=== PATIENT | female | born 1985 | race Caucasian/White ===

== ENCOUNTER 2020-04-30 19:52 | Emergency (ER) | payer BC, SELFPAY ==
[2020-04-30 20:10] VITALS: BP 127/80; PULSE 73; RESP 20; TEMP 36.6; O2SAT 96; BMI 31.1
[2020-04-30 20:45] LABS: UTC Strep Screen (Rapid) Positive (Negative)
--- NOTE | 2020-04-30 20:46 | HMH.EDUTC ---
[facility] [place] Clinical Impression: Exposure to COVID-19 virus, Strep throat Disposition: Home, Self-Care Condition on Discharge: Good Instructions: Strep Throat, DI for Strep Throat, DI for COVID-19 (Suspected or Confirmed ), Coronavirus Disease 2019, COVID-19: Testing and Tracing, Preventing the Spread of Coronavirus Discharge Instructions Additional Instructions: *Monitor Temp, Over the counter Motrin or Tylenol as directed/as needed Tylenol every 4 hours and Motrin every 6 hours (as long as your family doctor has told you that you can take it) for fever or pain. and straight to ER if unable to lower temp less than 101.0 after medication given *Warm salt water gargles may help to soothe the throat *Throat Lozenges *Warm fluids like tea with honey may help to soothe the throat *Sleep elevated *Humidifier/Vaporizer *If you did not take Penicillin shot or was unable to, start taking antibiotic immediately and make sure that you take it for the FULL length of time although you should start to feel better in 24-48 hours *change toothbrush and toothpaste 24-48 hours after starting to take antibiotics so you do not reinfect yourself Monitor Temp. Tylenol and/or Ibuprofen as needed. ER if fever is no less than 101 despite alternating Tylenol and Ibuprofen * Encourage fluids, water, Gatorade, powerade, pedialyte if /toddler/or child *Cold fluids, popsicles and ice cream may feel good on his throat Follow up IMMEDIATELY for new or worsening symptoms or no Noticeable improvement over the next 48-72 hours. 911 for difficulty breathing or swallowing You were tested for today for COVID19 your test result should be back in the next 24-48 hours, you may call to the [facility] to see if your test results are back in the next 48 hours [phone] [facility] hours are 9am-9pm You was given a handout with instructions for Self Quarantine and Self isolation for while you wait on test results and what to do if they are positive If you are positive the Health Dept will be contacting you also Prescriptions: Amoxicillin [Amoxicillin 500mg Cap] 500 mg PO BID 10 Days #20 cap Transmission Status: Received by [facility]/pharmacy #[id number] Ondansetron [Zofran 4mg ODT] 4 mg PO TIDP PRN #6 tab PRN Reason: Nausea Transmission Status: Pending to [facility]/pharmacy #[id number] Referrals: Theresa oTth PA [Primary Care Provider] - As needed Time of Disposition: 20:52 Medical Decision Making - Abdoul Inquiry Pt receiving controlled substance: No Abdoul was queried for this patient: No Vital Signs: 04/30/20 20:10 Temperature 97.8 F Temperature Source Oral Pulse Rate [Left Brachial] 73 Respiratory Rate 20 Blood Pressure [Left Arm] 127/80 Blood Pressure Mean [Left Arm] 95 Blood Pressure Source [Left Arm] Automatic Cuff Blood Pressure Position [Left Arm] Sitting 02 Sat by Pulse Oximetry 96 Oxygen Delivery Method Room Air - Lab Data Lab results reviewed: Yes: I reviewed the patient's lab results. Lab Results 04/30/20 20:43: Strep Scn Rapid [facility] Positive A Orders (Tests/Meds): ORDERS Category Date Time Status Covid-19 Nasal PCR ([facility]) Routine Lab 04/30/20 20:11 Re[place] [facility] [place] - General Stated complaint: covid test Time Seen by Provider: 04/30/20 20:47 Mode of Arrival: Ambulatory Source of Information: Patient Limitations: No Limitations Description of Symptoms (Recalled from Triage Doc. by RN): REQUESTING COVID TEST D/T EXPOSURE; C/O SORE THROAT, NAUSEA, AND FATIGUE HEENT Symptoms (Recalled from RN notes): Yes Resp Symptoms (Recalled from RN notes): No Skin Symptoms (Recalled from RN notes): No MS Symptoms (Recalled from RN notes): No Functional Status (Recalled from RN notes): WNL - History of Present Illness Provider Complaint: Patient states that she was recently around someone that tested positive for COVID States that she has been having sore throat, cough, body aches upset stomach and headache States that today she was feeli
[2020-04-30 20:54] VITALS: BP 127/80; PULSE 73; RESP 20; TEMP 36.6; O2SAT 96
== END 2020-04-30 21:00 | disposition home or self-care (01) ==
PROVIDERS: Emergency Provider Nurse Practitioner; PCP Nurse Practitioner Family
DX: J02.0 Streptococcal pharyngitis (principal); Z20.828 Contact with and (suspected) exposure to other viral communicable diseases; F17.210 Nicotine dependence, cigarettes, uncomplicated
CPT/HCPCS: 87880; 99202; G0463; U0003

== ENCOUNTER 2020-12-13 19:49 | Emergency (ER) | payer BC, SELFPAY ==
[2020-12-13 20:07] VITALS: BP 105/80; PULSE 88; RESP 18; TEMP 37.6; O2SAT 99; BMI 30.1
--- NOTE | 2020-12-13 20:21 | HMH.EDUTC ---
[facility] [place] Clinical Impression: Viral syndrome, Exposure to COVID-19 virus Disposition: Home, Self-Care Condition on Discharge: Good Instructions: DI for Viral Syndrome, Preventing the Spread of Coronavirus Discharge Instructions Additional Instructions: Drink plenty of fluids. Take tylenol for pain or fever. Return if you begin to have difficulty breathing. Follow up with your regular doctor. GO TO THE ER FOR ANY WORSENING SYMPTOMS Quarantine until you know the results of your covid-19 test. If it is positive, the health department should call you and give you further instructions about your length of Quarantine and other thing. Prescriptions: Ondansetron [Zofran 4mg ODT] 4 mg PO Q8HP PRN #12 tab.rapdis PRN Reason: Nausea Transmission Status: Received by [facility]/pharmacy #[id number] Referrals: Theresa Toth PA [Primary Care Provider] - Time of Disposition: 20:33 Medical Decision Making - Medical Records Medical records reviewed: No: I reviewed the patient's medical records. - Abdoul Inquiry Pt receiving controlled substance: No Vital Signs: 12/13/20 20:07 12/13/20 20:36 Temperature 99.6 F 99.5 F Temperature Source Oral Pulse Rate 85 Pulse Rate [Left] 88 Respiratory Rate 18 18 Blood Pressure 109/82 L Blood Pressure [Right Arm] 105/80 L Blood Pressure Mean [Right Arm] 88 02 Sat by Pulse Oximetry 99 Orders (Tests/Meds): ORDERS Category Date Time Status Covid-19 Nasal PCR ([facility]) Routine Lab 12/13/20 20:02 Received [facility] [place] - General Stated complaint: covid test Time Seen by Provider: 12/13/20 20:22 Mode of Arrival: Ambulatory Source of Information: Patient Limitations: No Limitations Description of Symptoms (Recalled from Triage Doc. by RN): PT C/O FEVER, crowder, BODY ACHES, CHILLS AND LOSS OF TASTE. PTS SON AND FIANCE ARE BOTH COVID POSITIVE. HEENT Symptoms (Recalled from RN notes): Yes (CROWDER AND LOSS OF TASTE) Resp Symptoms (Recalled from RN notes): No Skin Symptoms (Recalled from RN notes): No MS Symptoms (Recalled from RN notes): No Functional Status (Recalled from RN notes): BODY ACHES, CHILLS AND FEBRILE - History of Present Illness Provider Complaint: She c/o feeling bad for the past 3 days. She has had a cough, chest congestion, body aches. Both her son and her fiance have covid at this time. - Related Data Home Medications Medication Instructions Recorded Confirmed vilazodone 20 mg tablet mg PO DAILY tab 06/10/19 06/18/19 Previous Rx's Medication Instructions Recorded Hydrocodone/Acetaminophen [[place] 1 each PO Q6HP PRN #12 tab 06/09/19 5-325 Tablet] Naproxen [Naproxen 500mg tab] 500 mg PO Q12 PRN 7 Days #14 tab 06/09/19 hydrocodone 5 mg-acetaminophen 325 1 tab PO Q6H PRN #20 tab 06/10/19 mg tablet Amoxicillin [Amoxicillin 500mg 500 mg PO BID 10 Days #20 cap 04/30/20 Cap] Ondansetron [Zofran 4mg ODT] 4 mg PO TIDP PRN #6 tab 04/30/20 Ondansetron [Zofran 4mg ODT] 4 mg PO Q8HP PRN #12 tab.rapdis 12/13/20 Allergies Allergy/AdvReac Type Severity Reaction Status Date / Time No Known Drug Allergies Allergy Unknown Verified 06/18/19 13:50 [NO KNOWN DRUG ALLERGIES] - Worker's Comp Is this a Worker's Comp case?: No [facility] History - Hepatitis A Screen Drug use history?: No High risk sexual behaviors?: No History of sexually transmitted infection?: No Currently employed?: No Childcare worker?: No Do you have indoor plumbing?: Yes Do you have electricity?: Yes Attestation statement:: This patient has been screened for Hepatitis A risk factors. I have reviewed the patient's past medical history: Yes Other Surgeries: Yes: Amputation: No Fractures: No - Social History Smoking Status: Current some day smoker Alcohol Intake: never Substance Use Type: denies use Occupational Status: other Housing: house Household Members: family Family Hx:: No significant family history ROS Obtained: Yes All
[2020-12-13 20:36] VITALS: BP 109/82; PULSE 85; RESP 18; TEMP 37.5
--- NOTE | 2020-12-14 11:21 | PC.NURSE ---
PATIENT NOTIFIED OF POSITIVE COVID TEST AT THIS TIME
== END 2020-12-13 20:39 | disposition home or self-care (01) ==
PROVIDERS: Emergency Provider Nurse Practitioner Family; PCP Nurse Practitioner Family
DX: U07.1 COVID-19 (principal); B34.8 Other viral infections of unspecified site
CPT/HCPCS: 99202; G0463; U0003

== ENCOUNTER 2021-04-20 19:35 | Emergency (ER) | payer BC, SELFPAY ==
[2021-04-20 19:45] VITALS: BP 100/79; PULSE 110; RESP 16; TEMP 37.7; O2SAT 98; BMI 30.6
--- NOTE | 2021-04-20 20:32 | HMH.EDGENADL ---
ED Disposition Clinical Impression: Lumbar radicular pain Disposition: Home, Self-Care Condition on Discharge: Good Instructions: DI for Lumbar Radiculopathy Additional Instructions: use meds and see pcp for follow up Prescriptions: predniSONE [Prednisone 20mg Tab] 20 mg PO BID #10 tab Transmission Status: Pending to [facility]/pharmacy #[id number] Referrals: Emory Uriarte APRN [Primary Care Provider] - - Critical Care Critical Care Time: No Attestation: On 04/20/21, the high probability of a clinically significant, sudden or life threatening deterioration of the following system(s) required my full and direct attention, intervention and personal management. The time I documented below is in addition to time spent performing reported procedures but includes the following listed in this critical care notation. Medical Decision Making - Medical Records Medical records reviewed: Yes: I reviewed the patient's medical records. - Abdoul Inquiry Pt receiving controlled substance: No Vital Signs: 04/20/21 19:45 Temperature 100 F H Temperature Source Oral Pulse Rate [Right Brachial] 110 H Respiratory Rate 16 Blood Pressure [Right Arm] 100/79 L Blood Pressure Mean [Right Arm] 86 Blood Pressure Source [Right Arm] Automatic Cuff Blood Pressure Position [Right Arm] Sitting 02 Sat by Pulse Oximetry 98 Oxygen Delivery Method Room Air - Lab Data Lab results reviewed: Yes: I reviewed the patient's lab results. Lab Results 04/20/21 21:04: Urine Color Brown, Urine Appearance Cloudy, Urine pH 5.5, Ur Specific [place] >= 1.030, Urine Protein 1+, Urine Glucose (UA) Negative, Urine Ketones 1+, Urine Blood 3+, Urine Nitrate Negative, Urine Bilirubin 2+ A, Urine Urobilinogen 0.2, Ur Leukocyte Esterase Negative Orders (Tests/Meds): ORDERS Category Date Time Status C-Reactive Protein Stat Lab 04/20/21 20:11 Ordered Complete Blood Count Auto Diff Stat Lab 04/20/21 20:11 Ordered Comprehensive Metabolic Panel Stat Lab 04/20/21 20:11 Ordered Erythrocyte Sedimentation Rate Stat Lab 04/20/21 20:11 Ordered HCG Qualitative, Serum Stat Lab 04/20/21 20:17 Ordered Lactic Acid Stat Lab 04/20/21 20:11 Ordered Procalcitonin Stat Lab 04/20/21 20:11 Ordered Rapid PCR Covid and Flu A/B Stat Lab 04/20/21 20:11 Ordered Urinalysis and Microscopic Stat Lab 04/20/21 21:04 Results - Radiology Data #1 Image(s): L-Spine Image Reviewed: Yes I have reviewed radiologist's interpretation Preliminary Findings: No Fracture Seen Medical Decision Narrative: pt has lumbar radicular pain without cauda equina - urine - pt on menses - will treat as inflamation General Adult HPI - General Chief complaint: PAIN Stated complaint: lower back pain, surgery 06/21 Time Seen by Provider: 04/20/21 20:00 Mode of Arrival: Ambulatory Source of Information: Patient, Medical Record Limitations: No Limitations Description of Symptoms (Recalled from ER Triage Doc. by RN): c/o pain to lower back, and radiating to legs. Reports previous two back surgery. States lifted a bale of hay yesterday - History of Present Illness HPI narrative: hx of prev surg to back - has lifting and now increased pain and rad to rt lower leg - no cauda equina sx - no fever or rash Onset (ago): day(s) Location: back Radiation: extremity Severity: moderate Quality: sharp Consistency: intermittent Associated symptoms: denies other symptoms Treatments prior to arrival: none - Related Data Home Medications Medication Instructions Recorded Confirmed vilazodone 20 mg tablet mg PO DAILY tab 06/10/19 06/18/19 Previous Rx's Medication Instructions Recorded Hydrocodone/Acetaminophen [[place] 1 each PO Q6HP PRN #12 tab 06/09/19 5-325 Tablet] Naproxen [Naproxen 500mg tab] 500 mg PO Q12 PRN 7 Days #14 tab 06/09/19 hydrocodone 5 mg-acetaminophen 325 1 tab PO Q6H PRN #20 tab 06/10/19 mg tablet Amoxicillin [Amoxicillin 500mg 500 mg PO BID 10 D
--- NOTE | 2021-04-20 20:33 | XR_ITS ---
PROCEDURE INFORMATION: Exam: XR Lumbosacral Spine Exam date and time: 04/20/2021 8:33 PM Age: 35 years old Clinical indication: Low back pain; Prior surgery; Surgery date: 6+ months; Surgery type: Lumbar fusion several months ago at . TECHNIQUE: Imaging protocol: XR of the lumbosacral spine. Views: 4 or 5 views. COMPARISON: CT ABDOMEN PELVIS W CON 06/08/2019 9:29 PM FINDINGS: Bones/joints: Lumbosacral fusion hardware is present. Surgical hardware appears intact without significant adjacent lucency. Physiologic alignment. No acute fracture. Soft tissues: Unremarkable. IMPRESSION: Postsurgical changes described above.
--- NOTE | 2021-04-20 20:34 | PC.NURSE ---
PATIENT REFUSES IV AND BLOOD DRAW AT THIS TIME. AWARE.
[2021-04-20 21:22] LABS: Microscopic, Urine URINE MICROSCOPIC (MICROSCOPIC)
[2021-04-20 21:36] LABS: Appearance,Urine CLOUDY (Clear); Blood, Urine 3+ (Negative); Color,Urine BROWN (Yellow); Glucose,Urine (UA) Negative (Negative); Ketones,Urine 1+ (Negative); Leukocyte Esterase,Urine Negative (Negative); Nitrate,Urine Negative (Negative); PH,Urine 5.5 (5.0-8.5); Protein,Urine 1+ (Negative); Specific Gravity, Urine >= 1.030 (1.005-1.030); Urobilinogen,Urine 0.2 EU/dl (0.2)
[2021-04-20 21:41] LABS: Bilirubin,Urine 2+ (Negative)
[2021-04-20 22:21] VITALS: BP 114/75; PULSE 78; RESP 16; TEMP 36.6; O2SAT 98
[2021-04-20 22:39] LABS: Bacteria,Urine 1+ /lpf; RBC,Urine TNTC #/hpf (0-3)
== END 2021-04-20 22:22 | disposition home or self-care (01) ==
PROVIDERS: Emergency Provider Emergency Medicine; PCP Nurse Practitioner Family
DX: M54.16 Radiculopathy, lumbar region (principal); X50.0XXA Overexertion from strenuous movement or load, initial encounter; F17.210 Nicotine dependence, cigarettes, uncomplicated
CPT/HCPCS: 72110; 81001; 90471; 99281